=== PATIENT | male | born 1970 | race Asian ===

== ENCOUNTER 2018-10-12 14:44 | Emergency (ER) | payer OTHER ==
[~2018-10-12] VITALS: Ht 175.3 cm; Wt 61.2 kg
--- NOTE | 2018-10-12 14:45 | NUR ---
Patient to ER bed 06 to gown for evaluation. Side rails up.
[2018-10-12] MEDS ORDERED: ALBUTEROL SULFATE 0.083% 2.5 MG/3 ML VIAL.NEB IH ONE ×2 (15:00→15:45)
[2018-10-12] MEDS ORDERED: methylPREDNISolone SOD SUCC/PF 62.5 MG/ML VIAL IVP ONE (15:00)
[2018-10-12] MEDS ORDERED: MAGNESIUM SULFATE 1 GM in NS 50 ML IV ONE (15:00)
[2018-10-12] MEDS ORDERED: IPRATROPIUM BROM 0.5 MG/2.5 ML VIAL.NEB (ATROVENT) IH ONE ×3 (15:00→15:45)
--- NOTE | 2018-10-12 15:00 | NUR ---
[place] in [facility] - 10/12/18 at 1505 by [email or web address] Placed in room 06 . Placed on lunchroom monitor, blood pressure machine and pulse oximeter. To gown for exam. Side rails up.
[2018-10-12 15:01] VITALS: BP_SYST 156
[2018-10-12] MEDS ORDERED: IPRATROPIUM/ALBUTEROL SULFATE 3 ML AMPUL.NEB (DUONEB) ONE (15:01)
[2018-10-12] MEDS ORDERED: MAGNESIUM SULFATE 1 GM/2 ML VIAL ONE (15:04)
--- NOTE | 2018-10-12 15:10 | NUR ---
ER at bedside examining patient.
--- NOTE | 2018-10-12 15:15 | NUR ---
PT came to the ER due to shortness of breath. PT has history of Asthma and has friend bedside interpreting for him. PT is on O2 and receiving breathing treatments. PT not showing signs of acute distress.
--- NOTE | 2018-10-12 16:15 | NUR ---
Patient resting quietly. No acute distress noted. Vital signs within normal range.
[2018-10-12 17:00] VITALS: BP_SYST 156
--- NOTE | 2018-10-12 17:00 | NUR ---
Patient given written and verbal discharge instructions and verbalizes understanding. ER MD discussed with patient the results and treatment provided. Patient in stable condition. ID arm band removed. IV catheter removed intact and dressing applied, no active bleeding. Rx of Albuterol and Prednisone given. Patient educated on pain management and to follow up with PMD. Pain Scale 0/10. Opportunity for questions provided and answered. Medication side effect fact sheet provided.
== END 2018-10-12 17:00 | disposition home or self-care (01) ==
LOC: SED 14:44
DX: J45.901 Unspecified asthma with (acute) exacerbation (principal); R03.0 Elevated blood-pressure reading, without diagnosis of hypertension
CPT/HCPCS: 94640; 96365; 96375; 99284; J2930; J3475; J7613; J7620